=== PATIENT | female | born 1990 | race Caucasian/White ===

== ENCOUNTER 2018-10-16 15:18 | Emergency (ER) | payer OTHER ==
[2018-10-16 15:43] VITALS: BMI 26.1
--- NOTE | 2018-10-16 16:21 | PDOC ---
History of Present Illness - General Chief Complaint: Shortness of Breath Stated Complaint: CHEST PAIN/DIFF BREATHING Time Seen by Provider: 10/16/18 15:55 - History of Present Illness Initial Comments: Ms. Farr is a 28F @ 23 weeks, presenting with shortness of breath, substernal chest pain worse with deep breathing, and stomach cramps that started a few hours ago. Reports that these episodes have occurred twice a week throughout her after eating. Today's episode feels longer than prior. Also reports dark urine after eating. Reports intermittent right back pain in the right thoracic area. Denies fever, vaginal bleeding, burning on urination, cough. Sister has had gallstones before. Patient still has gallbladder. Past History - Past Medical History Allergies/Adverse Reactions: Allergies Allergy/AdvReac Type Severity Reaction Status Date / Time No Known Allergies Allergy Verified 10/16/18 18:03 COPD: No - Suicide/Smoking/Psychosocial Hx Smoking History: Never smoked Review of Systems - Review of Systems Comments:: ROS GENERAL/CONSTITUTIONAL: No fever or chills. No weakness. Reports lightheadedness. HEAD, EYES, EARS, NOSE AND THROAT: No change in vision. No ear pain or discharge. No sore throat._ CARDIOVASCULAR: Reports substernal chest pain and shortness of breath. RESPIRATORY: Denies cough, hemoptysis_ GASTROINTESTINAL: Reports nausea. Denies vomiting, diarrhea or constipation. Reports stomach cramps. GENITOURINARY: No dysuria, frequency, or change in urination. Denies vaginal bleeding. Reports dark urine. MUSCULOSKELETAL: No joint or muscle swelling or pain. Reports right sided back pain. SKIN: No rash_ NEUROLOGIC: No headache, vertigo, loss of consciousness, or change in strength/ sensation._ ENDOCRINE: No increased thirst. No abnormal weight change_ HEMATOLOGIC/LYMPHATIC: No anemia, easy bleeding, or history of blood clots._ ALLERGIC/IMMUNOLOGIC: No hives or skin allergy._ *Physical Exam - Vital Signs Last Vital Signs Temp Pulse Resp BP Pulse Ox 98.9 F 72 18 102/67 100 10/16/18 15:39 10/16/18 15:39 10/16/18 15:39 10/16/18 15:39 10/16/18 15:39 - Physical Exam Comments: GENERAL: Awake, alert, and oriented to person/place/time, in no acute distress_ HEAD: No signs of trauma, normocephalic, atraumatic _ EYES: PERRLA, EOMI, sclera anicteric, conjunctiva clear_ ENT: Hearing grossly normal, nares patent, oropharynx clear without exudates. No uvular deviation. Moist mucosa_ NECK: Normal ROM, supple, no lymphadenopathy, JVD, or masses_ CHEST: tenderness to palpation substernally LUNGS: No distress, speaks in full sentences, clear to auscultation bilaterally _ HEART: Regular rate and rhythm, normal S1 and S2, no murmurs appreciated, peripheral pulses normal and equal bilaterally._ ABDOMEN: Gravid, soft, nontender. EXTREMITIES: Normal inspection, Normal range of motion, no edema. No clubbing or cyanosis_ NEUROLOGICAL: Cranial nerves II through XII grossly intact. Normal speech, normal gait, no focal sensorimotor deficits _ SKIN: Warm, Dry, normal turgor, no rashes or lesions noted_ ED Treatment Course - LABORATORY CBC & Chemistry Diagram: 10/16/18 17:05 10/16/18 17:05 Medical Decision Making - Medical Decision Making 10/16/18 16:15 28F @ 23 weeks presenting with SOB, CP worse on deep breathing, and stomach cramps that occur after eating. Episodic 2x per week during , never had prior. Feels that today is worse than before. Not in respiratory distress. Will order CBC, CMP, UA, US abdomen. Will give 1L NS bolus and 1g IV tylenol for pain. 10/16/18 17:08 EKG shows 68 bpm, NSR with sinus arrhythmias, no axis deviation, no ST elevation /depression, QTc 450. 10/16/18 19:02 Abdominal US shows gallstone without cholecystitis. Patient signed out to Dr. Tam. *DC/Admit/Observation/Transfer Diagnosis at time of Disposition: Shortness of breath - Referrals - Patient Instructions - Post Discharge Activity
[2018-10-16] MEDS ORDERED: ACETAMINOPHEN 1000 MG/100 ML VIAL (NON FORMULARY) IVPB ONE (16:46)
[2018-10-16] MEDS ORDERED: SODIUM CHLORIDE 0.9% 500 ML INFUS.BAG IV ONE (16:46)
[2018-10-16 17:22] LABS: BASO % 0.3 % (0-2.0); EOS % 0.1 % (0-4.5); HEMATOCRIT 34.2 % (32.4-45.2); HEMOGLOBIN 11.6 GM/dL (10.7-15.3); LYMPH % 9.7 % (8-40); MCH 30.5 pg (25.7-33.7); MCHC 33.9 g/dl (32.0-36.0); MEAN CELL VOLUME 90.1 fl (80-96); MEAN PLT VOLUME 9.9 fl (7.5-11.1); NEUT % 83.9 % (42.8-82.8); PLATELET COUNT 196 K/MM3 (134-434); RBC 3.79 M/mm3 (3.60-5.2); RDW 13.2 % (11.6-15.6); WHITE BLOOD COUNT 17.4 K/mm3 (4.0-10.0)
[2018-10-16 17:41] LABS: ALBUMIN 3.1 g/dl (3.4-5.0); BILIRUBIN,TOTAL 0.6 mg/dL (0.2-1); CALCIUM 8.8 mg/dL (8.5-10.1); CREATININE 0.4 mg/dL (0.55-1.3); POTASSIUM 4.2 mmol/L (3.5-5.1); TOT PROT 6.4 g/dl (6.4-8.2)
[2018-10-16 18:20] LABS: URINE APPEARANCE CLEAR; URINE BILIRUBIN 1+ (NEGATIVE); URINE COLOR DK YELLOW; URINE GLUCOSE (UA) NEGATIVE (NEGATIVE); URINE KETONE TRACE (NEGATIVE); URINE LEUK ESTERASE NEGATIVE (NEGATIVE); URINE NITRITE NEGATIVE (NEGATIVE); URINE PROTEIN NEGATIVE (NEGATIVE)
[2018-10-16 18:34] LABS: ANISOCYTOSIS 0; MACROCYTOSIS 0; PLATELET ESTIMATE NORMAL
--- NOTE | 2018-10-16 20:27 | PDOC ---
*Physical Exam - Vital Signs Last Vital Signs Temp Pulse Resp BP Pulse Ox 98.1 F 64 20 114/58 L 98 10/16/18 20:05 10/16/18 20:05 10/16/18 20:05 10/16/18 20:05 10/16/18 20:05 - Physical Exam General Appearance: Yes: Nourished, Appropriately Dressed. No: Apparent Distress HEENT: positive: MELANIE, Normal ENT Inspection, Normal Voice Neck: positive: Supple Respiratory/Chest: positive: Lungs Clear Cardiovascular: positive: Regular Rhythm, Regular Rate, S1, S2 Vascular Pulses: Dorsalis-Pedis (R): 2+, Doralis-Pedis (L): 2+ Gastrointestinal/Abdominal: positive: Soft, Protuberent. negative: Guarding, Rebound Rectal Exam: positive: deferred Lymphatic: negative: Adenopathy Musculoskeletal: positive: Normal Inspection Extremity: positive: Normal Capillary Refill, Normal Inspection, Normal Range of Motion, Pelvis Stable Integumentary: positive: Normal Color, Dry, Warm Neurologic: positive: Fully Oriented, Alert, Normal Mood/Affect, Normal Response , Motor Strength 5/5 ED Treatment Course - LABORATORY CBC & Chemistry Diagram: 10/16/18 17:05 10/16/18 17:05 - ADDITIONAL ORDERS Additional order review: Laboratory Results 10/16/18 10/16/18 18:00 17:05 Sodium 139 Potassium 4.2 Chloride 106 Carbon Dioxide 24 Anion Gap 8 BUN 6.0 L Creatinine 0.4 L Est GFR (CKD-EPI)AfAm 166.61 Est GFR (CKD-EPI)NonAf 143.75 Random Glucose 95 Calcium 8.8 Total Bilirubin 0.6 AST 206 H ALT 185 H Alkaline Phosphatase 111 Total Protein 6.4 Albumin 3.1 L Urine Color Dk yellow Urine Appearance Clear Urine pH 7.0 Ur Specific [place] 1.037 H Urine Protein Negative Urine Glucose (UA) Negative Urine Ketones Trace H Urine Blood Negative Urine Nitrite Negative Urine Bilirubin 1+ H Urine Urobilinogen 1.0 Ur Leukocyte Esterase Negative 10/16/18 17:05 RBC 3.79 MCV 90.1 MCHC 33.9 RDW 13.2 MPV 9.9 Neutrophils % 83.9 H Lymphocytes % 9.7 Monocytes % 6.0 Eosinophils % 0.1 Basophils % 0.3 - RADIOLOGY Radiograph Interpretation: RUQ US: HISTORY: 28 year-old female with epigastric pain, elevated over function tests. COMPARISON: None. Findings: Pancreas normal in appearance. The proximal IVC and aorta are normal in configuration. Longitudinal dimension of the liver 17 cm. No focal intrahepatic mass lesion identified. Normal directional flow and Doppler signal present within the main intrahepatic portal vein. Echotexture liver is homogeneous. Technologist reports a negative sonographic Harrell sign. Gallstones present within the gallbladder lumen. No gallbladder wall thickening or pericholecystic fluid evident. Common bile duct nondilated 6 mm. Longitudinal dimension right kidney 12 cm. No evidence of right-sided hydronephrosis. Impression: 1. No dilatation of the intra-or extra hepatic biliary tree noted. Cholelithiasis. No additional findings to suggest acute cholecystitis. Negative sonographic Harrell sign per the technologist; correlate with patient's pain medication history. 2. Mild hepatomegaly. No focal intrahepatic mass lesion identified. - Medications Given in the ED: ED Medications Discontinued Medications Generic Name Dose Route Start Last Admin Trade Name Freq PRN Reason Stop Dose Admin Acetaminophen 1,000 mg 10/16/18 16:46 10/16/18 17:09 Ofirmev Injection - IVPB 10/16/18 16:47 1,000 mg ONCE ONE Administration Sodium Chloride 1,000 ml 10/16/18 16:46 10/16/18 17:09 Normal Saline - IV 10/16/18 16:47 1,000 ml ONCE ONE Administration Medical Decision Making - Medical Decision Making Patient signed out to me from day resident pending labs, US read, and re- assessment: Labs: Leukocytosis w left shift, elevated LFT's, trace ketonuria w 1+ bili in urine. US: gallstones but no evidence of cholecystitis Re-assessment: Patient feels better and believes this discomfort is likely a result of GERD. Disposition: Will send patient up to L&D for toco-monitoring, then DC patient with PCP and OB fu *DC/Admit/Observation/Transfer Diagnosis at time of Disposition: Shortness of breath GERD (gastroesophageal reflux disease) Qualifiers: Esophagitis presence: esophagitis presence not specified Qualified Code(s): K21.9 - Gastro-esophageal reflux disease without esophagitis Qualifiers: Weeks of gestation: 23 weeks Qualified Code(s): Z3A.23 - 23 weeks gestation of - Discharge Dispostion Disposition: HOME Condition at time of disposition: Stable Decision to Admit order: No - Referrals Referrals: Bernice Schroeder MD [Staff Physician] - (patient will increase amount of water she drinks daily as tolerated patient will eat small frequent meals, bland diet, avoid spicy & fatty foods patient will follow up with switchboard operator assistant & OB tomorrow patient will return to labor & delivery if water breaks, vaginal bleeding, regular contractions or decreased movement patient verbalizes clear understanding of all discharge instructions patient discharged to home stable intact & undelivered) Kurtis Soni MD [Staff Physician] - - Patient Instructions Printed Discharge Instructions: Gastroesophageal Reflux Disease (Alternative Therapy) Additional Instructions: You came into the ER with upper abdominal pain. We did an ultrasound of your gallbladder which shwoed you have stones but no infection. Please make sure to schedule a follow up appointment with your primary care doctor and your OB doctor in the next 3 to5 days to make sure you are feeling well and getting better. Come back to the ER immediately if your pain worsens, you get a fever, start vomiting, or have any other new or worsening concerns. Thank you for coming to the [facility]. We hope you feel better soon! Print Language: BELARUSIAN - Post Discharge Activity
--- NOTE | 2018-10-16 20:42 | PDOC ---
Documentation entered by London Osman SCRIBE, acting as scribe for Margareth Polk MD. Margareth Polk MD: This documentation has been prepared by the Jacqui andres Xhesika, SCRIBE, under my direction and personally reviewed by me in its entirety. I confirm that the documentation accurately reflects all work, treatment, procedures, and medical decision making performed by me. Attending Attestation - Resident Resident Name: [email or web address] - ED Attending Attestation I have performed the following: I have examined & evaluated the patient, The case was reviewed & discussed with the resident, I agree w/resident's findings & plan, Exceptions are as noted - HPI HPI: 10/16/18 16:51 The patient is a 28 year old female, , currently 23 weeks , with no significant past medical history of who presents to the ED with sudden onset of SOB, R lower back pain, chest pain worsened with deep breathing and epigastric pain. Pt notes she has been endorsing these episodes twice a week throughout her s/p eating a meal, however, her episodes have been longer and more severe. patient notes her urine has been dark yellow/ brown in color. 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 Pt states she has a family history of gallstones. The patient denies vaginal bleeding, headache and dizziness. Denies fever, chills, nausea, vomiting, diarrhea and constipation. Denies dysuria, frequency, urgency and hematuria. Allergies: NKA [employer]ICE [employer]EMENT: [place] Piña - Physicial Exam PE: 10/16/18 17:04 GENERAL: Awake, alert, and fully oriented, in no acute distress HEAD: No signs of trauma EYES: PERRLA, EOMI, sclera anicteric, conjunctiva clear ENT: Auricles normal inspection, hearing grossly normal, nares patent, oropharynx clear without exudates. Moist mucosa NECK: Normal ROM, supple, no lymphadenopathy, JVD, or masses LUNGS: Breath sounds equal, clear to auscultation bilaterally. No wheezes, and no crackles HEART: Regular rate and rhythm, normal S1 and S2, no murmurs, rubs or gallops ABDOMEN: (+) epigastric discomfort. (+) gravid, protuberant belly. Soft, nontender, normoactive bowel sounds. No guarding, no rebound. No masses. EXTREMITIES: Normal range of motion, no edema. No clubbing or cyanosis. No cords, erythema, or tenderness NEUROLOGICAL: Cranial nerves II through XII grossly intact. Normal speech, normal gait SKIN: Warm, Dry, normal turgor, no rashes or lesions noted. - Medical Decision Making 10/16/18 20:41 patient received IV fluids, Zofran. Labs reveal bumped LFTs. Gallbladder ultrasound was ordered Ultrasound showed gallstones but no acute cholecystitis Patient to go to L&D for monitoring
[2018-10-16 22:24] VITALS: BP 125/63; PULSE 63; TEMP 98.5
[2018-10-16] MEDS ORDERED: DEXTROSE 5%-LACTATED RINGERS 500 ML IV ONE (22:30)
--- NOTE | 2018-10-19 13:08 | EKG ---
Test Reason : Blood Pressure : / mmHG Vent. Rate : 068 BPM Atrial Rate : 068 BPM P-R Int : 120 ms QRS Dur : 082 ms QT Int : 424 ms P-R-T Axes : 049 055 023 degrees QTc Int : 450 ms NORMAL SINUS RHYTHM WITH SINUS ARRHYTHMIA NORMAL ECG NO PREVIOUS ECGS AVAILABLE Confirmed by DARYL OWUSU MD ([id number]) on 10/19/2018 1:08:06 PM Referred By: Confirmed By:DARYL OWUSU MD
== END 2018-10-16 22:45 | disposition home or self-care (01) ==
LOC: JER 15:18
PROC: 3E033NZ Introduction of Analgesics, Hypnotics, Sedatives into Peripheral Vein, Percutaneous Approach (ICD-10-PCS; principal; 2018-10-16)
PROC: 3E0337Z Introduction of Electrolytic and Water Balance Substance into Peripheral Vein, Percutaneous Approach (ICD-10-PCS; 2018-10-16)
DX: O26.892 Other specified pregnancy related conditions, second trimester (principal); Z3A.23 23 weeks gestation of pregnancy; R06.02 Shortness of breath; K21.9 Gastro-esophageal reflux disease without esophagitis
CPT/HCPCS: 36415; 76705-TC; 80053; 81003; 85025; 93005; 93010; 99283-25; J0131

== ENCOUNTER 2024-05-29 12:16 | Inpatient (IN) | payer BC, OTHER ==
[2024-05-29 12:27] VITALS: BMI 27.4
[2024-05-29] MEDS ORDERED: ONDANSETRON 4 MG/2 ML VIAL ONE (13:29)
[2024-05-29] MEDS: SODIUM CHLORIDE 1,000 ML IV STA ×2 (14:07→19:51)
[2024-05-29] MEDS: ACETAMINOPHEN 1000 MG/100 ML BAG IVPB ONE (14:08)
[2024-05-29] MEDS: ONDANSETRON 4 MG/2 ML VIAL IVPUSH ONE (14:08)
[2024-05-29 14:23] LABS: HEMOGLOBIN 13.2 GM/dL (10.7-15.3); MCH 29.1 pg (25.7-33.7); MCHC 33.8 g/dl (32.0-36.0); MEAN CELL VOLUME 86.1 fl (80-96); PLATELET COUNT 171 10^3/uL (134-434); RBC 4.53 M/mm3 (3.60-5.2); RDW 13.2 % (11.6-15.6); WHITE BLOOD COUNT 20.2 K/mm3 (4.0-10.0)
[2024-05-29 14:27] LABS: INR 1.35 (0.83-1.09); PROTHROMBIN TIME (PATIENT) 14.7 SEC (9.7-13.0)
[2024-05-29 14:29] LABS: ACTIVATED PTT 30.1 SECONDS (25.2-36.5)
[2024-05-29 14:41] LABS: POTASSIUM 4.6 mmol/L (3.5-5.1)
[2024-05-29 14:47] LABS: ALBUMIN 3.8 g/dl (3.4-5.0); BLOOD UREA NITROGEN 8.9 mg/dL (7-18); CALCIUM 8.7 mg/dL (8.5-10.1)
[2024-05-29 14:50] LABS: CREATININE 0.5 mg/dL (0.55-1.3)
[2024-05-29 14:53] LABS: TOT PROT 7.2 g/dl (6.4-8.2)
[2024-05-29 16:35] LABS: HIV INTERPRETATION NEGATIVE (NEGATIVE)
[2024-05-29 16:53] LABS: PH,URINE 5.5 (5.0-8.0); URINE APPEARANCE CLEAR; URINE BILIRUBIN NEGATIVE (NEGATIVE); URINE COLOR YELLOW; URINE GLUCOSE (UA) NEGATIVE (NEGATIVE); URINE KETONE NEGATIVE (NEGATIVE); URINE LEUK ESTERASE NEGATIVE (NEGATIVE); URINE NITRITE NEGATIVE (NEGATIVE); URINE PROTEIN NEGATIVE (NEGATIVE); URINE UROBILINOGEN 0.2 mg/dL (0.2-1.0)
[2024-05-29] MEDS: KETOROLAC TROMETHAMINE 30 MG/1 ML VIAL IVPUSH ONE ×2 (18:17→21:25)
[2024-05-29] MEDS ORDERED: MORPHINE SULFATE 2 MG/ML SYRINGE ONE (18:19)
[2024-05-29] MEDS: morphine CARPU-JECT 2 MG/1 ML DISP.SYRIN IVPUSH ONE (18:55)
[2024-05-29] MEDS ORDERED: PIPERACILLIN/TAZOB 3.375 GM 3.375 GM/50 ML BAG IVPB ONE (19:17)
[2024-05-29] MEDS ORDERED: MORPHINE SULFATE 2 MG/ML SYRINGE IVPUSH PRN (19:46)
[2024-05-29] MEDS: PIPERACILLIN/TAZOB 3.375 GM 3.375 GM in DEXTROSE 5%-WATER - 50 ML IVPB ONE (19:51)
[2024-05-29] MEDS ORDERED: morphine SULFATE 4 MG/ML VIAL ONE (19:58)
[2024-05-29] MEDS: morphine CARPU-JECT 4 MG/1 ML DISP.SYRIN IVPUSH ONE (20:11)
[2024-05-29] MEDS: DEXTROSE 5%-LACTATED RINGERS 1,000 ML IV SCH (21:25)
[2024-05-30] MEDS: LACTATED RINGERS SOLUTION 1000 ML INFUS.BAG IV ONE (08:46)
[2024-05-30] MEDS: PIPERACILLIN/TAZOB 3.375 GM 50 ML IVPB SCH (09:45)
[2024-05-30 10:13] LABS: BASO % 0.1 % (0-2.0); EOS % 0.1 % (0-4.5); HEMATOCRIT 31.4 % (32.4-45.2); HEMOGLOBIN 10.7 GM/dL (10.7-15.3); LYMPH % 10.6 % (8-40); MCH 29.7 pg (25.7-33.7); MCHC 34.2 g/dl (32.0-36.0); MEAN CELL VOLUME 86.9 fl (80-96); MONO % 6.5 % (3.8-10.2); NEUT % 82.7 % (42.8-82.8); PLATELET COUNT 147 10^3/uL (134-434); RBC 3.61 M/mm3 (3.60-5.2); RDW 13.1 % (11.6-15.6); WHITE BLOOD COUNT 13.6 K/mm3 (4.0-10.0)
[2024-05-30 10:40] LABS: BLOOD UREA NITROGEN 6.8 mg/dL (7-18); CALCIUM 8.3 mg/dL (8.5-10.1)
[2024-05-30 10:43] LABS: ALBUMIN 2.9 g/dl (3.4-5.0); CREATININE 0.5 mg/dL (0.55-1.3)
[2024-05-30 10:45] LABS: BILIRUBIN,TOTAL 2.3 mg/dL (0.2-1); TOT PROT 5.8 g/dl (6.4-8.2)
[2024-05-30] MEDS: ACETAMINOPHEN 325 MG TABLET (FP) PO PRN (11:51)
[2024-05-30] MEDS: CEFTRIAXONE 1 G/50 ML PREMIX 50 ML IVPB SCH (13:50)
[2024-05-30] MEDS: DOXYCYCLINE HYCLATE 100 MG CAPSULE PO SCH (17:40)
[2024-05-30] MEDS ORDERED: DOXYCYCLINE HYCLATE 100 MG CAPSULE PO SCH (18:00)
[2024-05-30] MEDS ORDERED: PIPERACILLIN/TAZOB 3.375 GM 50 ML IVPB SCH (18:00)
[2024-05-31 06:22] VITALS: RESP 18
[2024-05-31 09:21] LABS: BASO % 0.3 % (0-2.0); HEMATOCRIT 32.1 % (32.4-45.2); HEMOGLOBIN 11.2 GM/dL (10.7-15.3); LYMPH % 22.2 % (8-40); MCH 30.2 pg (25.7-33.7); MEAN CELL VOLUME 86.2 fl (80-96); MEAN PLT VOLUME 9.9 fl (7.5-11.1); MONO % 8.7 % (3.8-10.2); NEUT % 67.8 % (42.8-82.8); PLATELET COUNT 152 10^3/uL (134-434); RBC 3.72 M/mm3 (3.60-5.2); RDW 13.1 % (11.6-15.6); WHITE BLOOD COUNT 5.7 K/mm3 (4.0-10.0)
[2024-05-31] MEDS ORDERED: CEFTRIAXONE 1 G/50 ML PREMIX 50 ML IVPB SCH (10:00)
[2024-05-31] MEDS: metroNIDAZOLE 250 MG TABLET PO SCH (10:01)
[2024-05-31 14:17] VITALS: BP 122/83; PULSE 77; TEMP 98.2
== END 2024-05-31 14:17 | disposition home or self-care (01) | DRG 759 ==
LOC: JER 12:16 → JERBED 19:24 → OBSVTOIN 19:42 → JERBED 20:29 → J5S 20:38
PROVIDERS: ADMIT Family Medicine; ATTEND Family Medicine
DX: N73.9 Female pelvic inflammatory disease, unspecified (principal); R10.2 Pelvic and perineal pain; N89.8 Other specified noninflammatory disorders of vagina; R10.9 Unspecified abdominal pain; D72.829 Elevated white blood cell count, unspecified
CPT/HCPCS: 36415; 74177-TC; 76705-TC; 76830-TC; 80053; 81003; 84703; 85025; 85610; 85730; 86803; 86850; 86900; 86901; 87040; 87086; 87389; 87491; 87591; 87661; 93005; 93010; 99285-25; G0378; J0131; Q9967